=== PATIENT | female | born 1985 | race Caucasian/White ===

== ENCOUNTER 2019-02-08 05:58 | Emergency (ER) | payer OTHER ==
[~2019-02-08] VITALS: Ht 162.6 cm; Wt 75.8 kg
[~2019-02-08 05:58] MED LIST: IBUP800 PO
== END 2019-02-08 09:33 | disposition home or self-care (01) ==
LOC: ER 05:58
DX: R09.89 Other specified symptoms and signs involving the circulatory and respiratory systems (principal); R11.2 Nausea with vomiting, unspecified
CPT/HCPCS: 71045; 96372; 99283-25; A9270-GY; J1610